=== PATIENT | female | born 1970 | race Caucasian/White ===

== ENCOUNTER → 2018-09-24 | Outpatient (CLI) | payer OTHER ==
[~2018-09-24] MED LIST: CLARITIN10 MG PO; HYDROCODONE-AP1 EAC6 PO; KEFLEX500 M1 PO; MEDROLDOSEPACK PO; OMEPRAZOLE40 MG PO; PERCOCET 7.5-31 EACH PO; ZOFRAN ODT4 MG PO
== END ==
LOC: M.RAD 12:43
DX: Z12.31 Encounter for screening mammogram for malignant neoplasm of breast (principal)

== ENCOUNTER → 2019-04-05 | Outpatient (CLI) | payer OTHER | LOC: M.MRI 06:59 | DX: S83.242A Other tear of medial meniscus, current injury, left knee, initial encounter (principal); X58.XXXA Exposure to other specified factors, initial encounter; Y93.89 Activity, other specified; Y92.89 Other specified places as the place of occurrence of the external cause; Y99.8 Other external cause status ==

== ENCOUNTER 2019-05-07 13:01 | Emergency (ER) | payer OTHER ==
[~2019-05-07] VITALS: Ht 175.3 cm; Wt 80.7 kg
[2019-05-07] MEDS ORDERED: ACCUNEB SO1.25 MG/1 INH (13:17)
[2019-05-07 13:34] LABS: ABSOLUTE BASOPHILS 0.1 thou/uL (0.0-0.2); ABSOLUTE LYMPHOCYTES 2.1 thou/uL (0.8-5.3); ABSOLUTE MONOCYTES 0.7 thou/uL (0.0-1.2); BASOPHILS 0.7 %; EOSINOPHILS 0.4 %; HEMATOCRIT 40.5 % (37.0-47.0); LYMPHOCYTES 19.1 %; MCHC 34.6 g/dL (28.0-37.0); MCV 89.5 fL (80.0-100.0); MONOCYTES 6.8 %; MPV 8.3 fl. (7.2-11.1); NUCLEATED RBCS 0 /100WBC; PLATELET COUNT* 265 thou/uL (150-400); RBC 4.52 mil/uL (4.20-5.00); WBC 10.9 thou/uL (4.0-11.0)
[2019-05-07 13:44] LABS: ANION GAP 8 mmol/L (7-16); BUN 20 mg/dL (7-18); CALCIUM 9.8 mg/dL (8.5-10.1); CHLORIDE 103 mmol/L (98-107); CO2 26 mmol/L (21-32); GLUCOSE 94 mg/dL (70-99); POTASSIUM 4.1 mmol/L (3.5-5.1); SODIUM 137 mmol/L (136-145)
[2019-05-07 13:54] LABS: ALBUMIN 3.9 g/dL (3.4-5.0); ALKALINE PHOSPHATASE 54 U/L (46-116); NT-PRO BRAIN NAT PEPTIDE 39 pg/mL (<300); SGOT 9 U/L (15-37); SGPT 21 U/L (30-65); TOTAL BILIRUBIN 0.2 mg/dL (<0.1-1.0); TOTAL PROTEIN 7.1 g/dL (6.4-8.2); TROPONIN-I LEVEL <0.06 ng/mL (<0.06)
[2019-05-07] MEDS ORDERED: ZANAFLEX4 MG PO (14:39)
[2019-05-07 14:59] VITALS: BP 112/33
--- NOTE | 2019-05-08 14:04 | EKG ---
[place] [address] ELECTROCARDIOGRAM REPORT Name: DAYLIN PARKINSON Room: [facility]#: [id number] Admission: 05/07/19 Attend Phys: Discharge: 05/07/19 Date of : 68 Report #: [id number] THIS REPORT FOR: //name// [facility] ED Test Date: 2019-05-07 Test Time: 14:29:51 Pat Name: DAYLIN PARKINSON Department: Room: Gender: F Communications Officer: ev : 1970 Requested By: Greer Sethi Order Number: [id number] MD: Cr Guerrier Measurements Intervals [place] Rate: 56 P: 43 CA: 129 QRS: 41 QRSD: 93 T: 36 QT: 389 QTc: 376 Interpretive Statements Sinus rhythm Probable left atrial enlargement No previous ECG available for comparison Electronically Signed On 05-08-2019 14:04:03 CDT by Cr Guerrier [email or web address] <ELECTRONICALLY SIGNED> By: Cr Guerrier MD, FACC 05/08/19 1404 1429 1429 Cr [email or web address] MD, FACC /EPI
== END 2019-05-07 14:59 | disposition home or self-care (01) ==
LOC: M.ERS 13:01
PROVIDERS: Nurse Practitioner Family
DX: S80.02XA Contusion of left knee, initial encounter (principal); R60.0 Localized edema; Z98.890 Other specified postprocedural states; Z88.8 Allergy status to other drugs, medicaments and biological substances; X58.XXXA Exposure to other specified factors, initial encounter; Y93.89 Activity, other specified; Y92.89 Other specified places as the place of occurrence of the external cause; Y99.8 Other external cause status

== ENCOUNTER 2020-01-23 15:29 | Emergency (ER) | payer OTHER ==
[~2020-01-23] VITALS: Ht 175.3 cm; Wt 78.0 kg
[~2020-01-23 15:29] MED LIST changes: +ACCUNEB SO1.25 MG/1 INH; +ZANAFLEX4 MG PO
[2020-01-23] MEDS ORDERED: NAPROSYN500 MG PO (17:01)
[2020-01-23] MEDS ORDERED: MEDROLDOSEPACK PO (17:01)
[2020-01-23] MEDS ORDERED: NORCO 5-325 TA1 EAC1 PO (17:09)
[2020-01-23 17:27] VITALS: BP 124/70
== END 2020-01-23 17:29 | disposition home or self-care (01) ==
LOC: M.ERS 15:29
DX: S50.12XA Contusion of left forearm, initial encounter (principal); M75.42 Impingement syndrome of left shoulder; Z98.890 Other specified postprocedural states; Z88.8 Allergy status to other drugs, medicaments and biological substances; Z90.710 Acquired absence of both cervix and uterus; V89.2XXA Person injured in unspecified motor-vehicle accident, traffic, initial encounter; Y93.89 Activity, other specified; Y92.89 Other specified places as the place of occurrence of the external cause; Y99.8 Other external cause status

== ENCOUNTER → 2020-02-21 | Outpatient (CLI) | payer OTHER ==
[~2020-02-21] MED LIST changes: +NAPROSYN500 MG PO; +NORCO 5-325 TA1 EAC1 PO
[2020-02-21 15:12] LABS: CALCIUM 8.8 mg/dL (8.5-10.1); CREATININE 1.3 mg/dL (0.6-1.3); PHOSPHORUS* 6.2 mg/dL (2.5-4.9)
== END ==
LOC: M.LAB 14:22
PROVIDERS: ATTEND Otolaryngology
DX: E83.51 Hypocalcemia (principal)

== ENCOUNTER → 2020-02-26 | Outpatient (CLI) | payer OTHER ==
[2020-02-26 16:14] LABS: CALCIUM 8.7 mg/dL (8.5-10.1); CREATININE 1.3 mg/dL (0.6-1.3)
== END ==
LOC: M.LAB 15:32
PROVIDERS: ATTEND Otolaryngology
DX: Z90.89 Acquired absence of other organs (principal)

== ENCOUNTER → 2020-03-30 | Outpatient (CLI) | payer OTHER | LOC: M.LAB 13:32 | PROVIDERS: ATTEND Otolaryngology | DX: Z90.89 Acquired absence of other organs (principal) ==